=== PATIENT | female | born 1955 | race Caucasian/White ===

== ENCOUNTER 2021-02-26 12:12 | Emergency (ER) | payer OTHER, SELFPAY ==
[2021-02-26 12:14] VITALS: BP 120/62; PULSE 88; RESP 18; TEMP 37.3; O2SAT 94; BMI 33.8
--- NOTE | 2021-02-26 12:17 | W.ED.SEIZURE ---
HPI - Seizure General: Chief Complaint: Seizure Stated Complaint: SEIZURE Time Seen by Provider: 02/26/21 12:16 History of Present Illness: HPI Narrative: 66-year-old female presents emergency room after having a syncopal-like episode. She states that she got a second Covid vaccination but it was on maternal vaccination. She is was generally not feeling well and had a low-grade fever felt weak myalgias etc. Patient collapsed there was no tonic-clonic reactions. No postictal phase no myalgias no loss of bowel or bladder control. MD complaint: possible seizure and syncope Onset (ago): minute(s) Description of Episode: loss of consciousness Trauma: No Seizure History: No Place: Home Possible Precipitating Event: fever and other (Myalgias flulike symptoms secondary to during the vaccination) Associated symptoms: Reports fever(s), anorexia, malaise, syncope and weakness; Deny chest pain, chills, confusion, cough, diaphoresis, rash or short of breath Treatments prior to arrival: none Review of Systems Const: Reports: fever(s) and malaise; Denies: chills or diaphoresis ENMT: Denies: throat pain, ear or mastoid pain, nasal discharge or nasal congestion Card: Reports: syncope; Denies: chest pain Resp: Denies: dyspnea, productive cough or non-productive cough GI: Denies: abdominal pain, nausea, vomiting, hematemesis, coffee ground emesis, diarrhea, constipation, bloating, hematochezia or melena : Denies: flank pain, difficulty voiding, dysuria, urinary frequency or urinary urgency Skin/Breast: Denies: rash or pruritus Neuro: Denies: confusion Physical Exam Const: COMMON NORMALS: no acute distress GENERAL APPEARANCE: cooperative and comfortable ORIENTATION/CONSCIOUSNESS: Yes awake, Yes oriented to person, Yes oriented to place and Yes oriented to time HENMT: COMMON NORMALS: normocephalic, atraumatic, hearing grossly normal bilaterally, external ears normal, EAC's normal, TM's normal bilaterally, Normal nasal mucous membranes and turbinates present, moist oral mucous membranes and oropharynx normal HEAD & SCALP: normocephalic and atraumatic NOSE: Normal nasal mucous membranes and turbinates present EXTERNAL EAR: Yes external ears normal EXTERNAL AUDITORY CANAL: EAC's normal TYMPANIC MEMBRANE: TM's normal bilaterally Eye: COMMON NORMALS: Equal, round and reactive pupils present, EOMs intact bilaterally, conjunctivae normal and no scleral icterus CONJUNCTIVA: Yes conjunctivae normal PUPIL: Yes Equal, round and reactive pupils present Neck/C-Spine: COMMON NORMALS: full ROM, no lymphadenopathy, supple and no JVD Resp: COMMON NORMALS: normal respiratory effort, No retractions, No use of accessory muscles and clear to auscultation bilaterally AUSCULTATION: clear to auscultation bilaterally Cardio: COMMON NORMALS: no JVD, regular rate, regular rhythm and No murmurs present (Cardio) RATE: regular rate RHYTHM: regular rhythm GI: COMMON NORMALS: Soft to palpation and No hepatosplenomegaly present AUSCULTATION: Yes normoactive bowel sounds PALPATION: Yes Soft to palpation, No Tenderness to palpation present (GI), No Guarding due to palpation present (GI) and Yes No hepatosplenomegaly present Extremity: COMMON NORMALS: normal to inspection, capillary refill normal, no clubbing, cyanosis or edema, no calf tenderness and no pedal edema Neuro: SENSORIUM/ORIENTATION: Yes oriented to person, Yes oriented to place and Yes oriented to time Skin: COMMON NORMALS: no rashes or lesions noted GENERAL SKIN EXAM: no rashes or lesions noted Course Vital Signs: Vital signs: Vital Signs Temperature 99.2 F 02/26/21 12:14 Pulse Rate 82 02/26/21 16:09 Respiratory Rate 16 02/26/21 16:09 Blood Pressure 137/72 02/26/21 16:09 Pulse Oximetry 94 02/26/21 16:09 MDM - Seizure MDM Narrative: Medical decision making narrative: Labs reviewed sounds like she had more of a vasovagal episode syncopal episode probably related to the symptoms she was having but I do not believe she actually had a seizure. Go ahead and discharge her home if she has recurring symptoms can return. Lab Data: Attestation: I reviewed the patient's lab results. Labs: Lab Results 02/26/21 02/26/21 02/26/21 Range/Units 13:04 13:04 13:53 WBC 7.2 (4.0-10.0) 10^3/ uL RBC 4.37 (4.1-5.3) 10^6/u L Hgb 11.5 (11.5-15.3) g/dL Hct 36.9 L (37.0-47.0) % MCV 84.4 (81-99) fL MCH 26.3 L (28.0-34.0) pg MCHC 31.2 (30.0-36.0) g/dL RDW 14.8 (12.1-15.1) % Plt Count 242 (130-400) 10^3/c mm MPV 9.8 (7.4-10.4) fL Neut % (Auto) 79.3 % Lymph % (Auto) 10.8 % [place] % (Auto) 8.8 % Eos % (Auto) 0.1 % Baso % (Auto) 0.6 % Neut # (Auto) 5.68 (1.8-7.7) 10^3/u L Lymph # (Auto) 0.8 (0.8-4.8) 10^3/u L [place] # (Auto) 0.6 (0.2-0.9) 10^3/u L Eos # (Auto) 0.0 (0.0-0.8) 10^3/u L Baso # (Auto) 0.0 (0.0-0.1) 10^3/u L Nucleated RBC % (a uto) 0 % Nucleated RBCs # 0.0 /100WBC Sodium 137 (136-145) mmol/L Potassium 4.4 (3.5-5.1) mmol/L Chloride 99 (98-107) mmol/L Carbon Dioxide 29 (22-29) mmol/L Anion Gap 13.4 (5-19) BUN 15 (8-23) mg/dL Creatinine 0.6 (0.5-0.9) mg/dL GFR Calculation 100.6 (90-130) mL/min Glucose 121 H (65-115) mg/dL Calculated Osmolal ity 286 (285-295) mOsm/k g Calcium 8.8 (8.5-10.5) mg/dL Magnesium 1.7 (1.7-2.3) mg/dL Total Bilirubin 0.4 (0.15-1.2) mg/dL AST 16 (0-32) U/L ALT 10 (0-33) U/L Alkaline Phosphata se 75 (35-105) IU/L Creatine Kinase 40 (26-192) U/L Total Protein 6.9 (6.6-8.7) g/dL Albumin 4.1 (3.5-5.2) g/dL Globulin 2.8 (1.3-4.6) g/dL Urine Color Yellow (Yellow) Urine Appearance Clear (CLEAR) Urine pH 5 (5-7) Ur Specific Gravit y 1.015 (1.005-1.030) Urine Protein Neg (Negative) Urine Glucose (UA) 4+ H (Normal) Urine Ketones 1+ H (Negative) Urine Blood Trace H (Negative) Urine Nitrate Negative (Negative) Urine Bilirubin Neg (Negative) Urine Urobilinogen Norm (Negative) mg/dL Ur Leukocyte Elizabeth ase Negative (Negative) Urine RBC 0-4 H (0-2) /hpf Urine WBC None (0-5) /hpf Ur Squamous Epith Cells 0-4 H (0-5) /hpf Amorphous Sediment Not Reportable Urine Bacteria 1+ H (NONE) /hpf Discharge Plan Discharge Patient Disposition: Home Clinical Impression: Syncope, vasovagal Condition: Stable Prescriptions: No Action atorvastatin 40 mg tablet 40 mg PO DAILY@2099 RF: 0 metformin 500 mg tablet 1,000 mg PO BID@ RF: 0 tizanidine 2 mg tablet 2 mg PO Q8H PRN (Reason: Pain) RF: 0 citalopram 40 mg tablet 40 mg PO DAILY@ RF: 0 lisinopril-hydrochlorothiazide 20-12.5 mg tablet 1 tab PO DAILY@ RF: 0 levothyroxine 25 mcg tablet 25 mcg PO DAILY@ RF: 0 Advil 200 mg Tablet 200 mg PO BEDTIME PRN (Reason: Pain) RF: 0 gabapentin 300 mg capsule 300 mg PO BEDTIME@2099 RF: 0 Jardiance 25 mg tablet 25 mg PO DAILY@ RF: 0 Discharge Orders: Discharge ED (Routine); Ordered 02/26/21 Ordered By: Oren Giles Referrals: Reanna Reno, [employer] [Primary Care Provider] - Discharge Diet: Usual diet Discharge Activity: Resume usual activity Patient Instructions: Opioid Safety Coding Level of Care Code ED Applique Cutter for Lidia Sanders
--- NOTE | 2021-02-26 12:23 | XR_ITS ---
WS: [id number] PORTABLE CHEST HISTORY: dyspnea/cough COMPARISON: None available. Lungs are clear and well expanded. No pleural effusion or pneumothorax. Cardiac size: Normal. Mediastinum/Aorta: Normal mediastinum. No osseous abnormality seen. XR/XR chest 1V portable [id number] IMPRESSION: Unremarkable portable chest.
--- NOTE | 2021-02-26 12:23 | ECG_ITS ---
[facility] Test Date: 2021-02-26 Pat Name: Maira Sands Department: Room: Gender: Female Washer Off: : 1955 Requested By: Oren Fatima Order Number: [id number] Reading MD: SHANIQUA RICO Measurements Intervals [place] Rate: 85 P: 4 CO: 148 QRS: 1 QRSD: 85 T: 2 QT: 366 QTc: 436 Interpretive Statements SINUS RHYTHM LOW QRS VOLTAGE IN PRECORDIAL LEADS [QRS DEFLECTION < 1.0 mV IN CHEST LEADS] POSSIBLE ANTERIOR MYOCARDIAL INFARCTION , OF INDETERMINATE AGE [30 ms Q WAVE IN V3/V4, OR R < 0.2 mV IN V4] POSSIBLE INFERIOR MYOCARDIAL INFARCTION , OF INDETERMINATE AGE [30 ms Q WAVE IN II/aVF] No previous ECG available for comparison Electronically Signed On 02-26-2021 20:41:56 CDT by SHANIQUA RICO [id number] f
[2021-02-26 12:27] VITALS: BP 120/62; PULSE 91; RESP 16; O2SAT 95
[2021-02-26 13:09] LABS: Basophils % 0.6 %; Eosinophils % 0.1 %; Hematocrit 36.9 % (37.0-47.0); Hemoglobin 11.5 g/dL (11.5-15.3); Lymphocytes # 0.8 10^3/uL (0.8-4.8); Lymphocytes % 10.8 %; Mean Corpuscular HGB Conc 31.2 g/dL (30.0-36.0); Mean Corpuscular Hemoglobin 26.3 pg (28.0-34.0); Mean Corpuscular Volume 84.4 fL (81-99); Mean Platelet Volume 9.8 fL (7.4-10.4); Monocytes # 0.6 10^3/uL (0.2-0.9); Monocytes % 8.8 %; Neutrophils # 5.68 10^3/uL (1.8-7.7); Neutrophils % 79.3 %; Nucleated Red Blood Cells % 0 %; Platelet Count 242 10^3/cmm (130-400); Red Blood Count 4.37 10^6/uL (4.1-5.3); Red Cell Distribution Width 14.8 % (12.1-15.1); White Blood Count 7.2 10^3/uL (4.0-10.0)
[2021-02-26 13:27] VITALS: BP 179/105; PULSE 79; RESP 16; O2SAT 95
[2021-02-26 13:33] LABS: Alanine Aminotransferase 10 U/L (0-33); Albumin Level 4.1 g/dL (3.5-5.2); Alkaline Phosphatase 75 IU/L (35-105); Anion Gap 13.4 (5-19); Aspartate Amino Transferase 16 U/L (0-32); Blood Urea Nitrogen 15 mg/dL (8-23); Calcium 8.8 mg/dL (8.5-10.5); Carbon Dioxide 29 mmol/L (22-29); Chloride 99 mmol/L (98-107); Creatine Phosphokinase 40 U/L (26-192); Globulin 2.8 g/dL (1.3-4.6); Glomerular Filtration Rate 100.6 mL/min (90-130); Glucose 121 mg/dL (65-115); Magnesium 1.7 mg/dL (1.7-2.3); Osmolality Calculated 286 mOsm/kg (285-295); Potassium 4.4 mmol/L (3.5-5.1); Sodium 137 mmol/L (136-145); Total Bilirubin 0.4 mg/dL (0.15-1.2); Total Protein 6.9 g/dL (6.6-8.7)
[2021-02-26] MEDS: sodium chloride 0.9% 1,000 ML 999 ML IV (14:05)
[2021-02-26 14:19] LABS: Add Urine Microscopic? YES; Bilirubin Urine Neg (Negative); Blood Urine Trace (Negative); Glucose Urine UA 4+ (Normal); Ketones Urine 1+ (Negative); Leukocyte Esterase Urine Negative (Negative); Nitrate Urine Negative (Negative); Protein Urine Neg (Negative); Specific Gravity, Urine 1.015 (1.005-1.030); Urine Appearance Clear (CLEAR); Urine Color Yellow (Yellow); Urobilinogen Urine Norm (Negative); pH Urine 5 (5-7)
[2021-02-26 14:42] VITALS: BP 132/80; PULSE 84; RESP 16; O2SAT 90
[2021-02-26 15:07] LABS: RBC Urine 0-4 /hpf (0-2); Squamous Epithelial Cell Urine 0-4 /hpf (0-5)
[2021-02-26 15:09] LABS: Add Urine Culture? No; Bacteria Urine 1+ /hpf
[2021-02-26 15:30] VITALS: BP 137/72; PULSE 83; RESP 16; O2SAT 94
[2021-02-26 16:09] VITALS: BP 137/72; PULSE 82; RESP 16; O2SAT 94
== END 2021-02-26 16:09 | disposition home or self-care (01) ==
PROVIDERS: Emergency Provider Family Medicine; PCP Nurse Practitioner Family
DX: R55 Syncope and collapse (principal)
CPT/HCPCS: 51701; 71045; 80053; 81001; 82550; 83735; 85025; 93005; 96360; 99284; J7030

== ENCOUNTER 2021-10-12 10:38 | Outpatient (CLI) | payer OTHER, SELFPAY ==
--- NOTE | 2021-10-12 11:00 | MR_ITS ---
WS: [id number] MRI LUMBAR SPINE NONCONTRAST HISTORY: RADICULOPATHY, RIGHT leg numbness for 3 years. COMPARISON: None available. TECHNIQUE: Sagittal and axial multisequence imaging is submitted. Sagittal syringe through the thoracic cord reveals increased T2 signal in the central cervical cord a t the C5-6 level extending over a length of 10 mm. Very slight straightening of the posterior lumbar vertebral bodies. Retrolisthesis of L5 by 5 mm. Moderate degenerative disc disease and narrowing at L5-S1. No marrow edema or fracture. Conus terminates normally at L1-2 disc level. L1-L2: Normal. L2-L3: Mild ligamentum flavum hypertrophy. No stenosis. L3-L4: Mild ligamentum flavum and facet arthritis. Small amount of fluid in the facet joints. No sten osis. L4-L5: Very mild annular disc bulging with moderate ligamentum flavum hypertrophy and facet arthritis encroaching into the thecal sac. There is disc contacting the traversing L5 nerve roots in the later al recesses. Mild encroachment into the thecal sac by ligamentum flavum hypertrophy. L5-S1: Diffuse annular disc bulging and osteophytic ridging. Moderate ligamentum flavum and facet garrett nt arthritis encroaching into the thecal sac and subarticular recesses. There is mild contact on the S1 nerve roots bilaterally and mild narrowing of the central canal. Disc protrusion extending into th e RIGHT foramen. Very slight contact on the undersurface of the exiting RIGHT L5 nerve root. Tiny cortical cyst RIGHT kidney. MR/MR lumbar spine wo con* [id number] IMPRESSION: 1. Mild central and bilateral subarticular recess stenosis at L4-5 with mild c ontact on the L5 nerve roots. 2. Mild central stenosis at L5-S1 with moderate bilateral subarticular recess and RIGHT foraminal stenosis. Suspect small disc protrusion in the RIGHT forame n with minimal contact also on the exiting L5 nerve root. Mild LEFT foraminal s tenosis at L5-S1. 3. 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 Recommend follow-up cervical sp ine MRI with and without contrast.
== END 2021-10-12 10:39 | disposition home or self-care (01) ==
PROVIDERS: PCP Nurse Practitioner Family; Visit Provider Nurse Practitioner Family
DX: M54.16 Radiculopathy, lumbar region (principal); R20.0 Anesthesia of skin; M48.061 Spinal stenosis, lumbar region without neurogenic claudication; M48.07 Spinal stenosis, lumbosacral region
CPT/HCPCS: 72148

== ENCOUNTER → 2021-10-22 10:34 | Outpatient (BNVA) | payer OTHER, SELFPAY | PROVIDERS: PCP Nurse Practitioner Family; Referring Provider Nurse Practitioner Family; Visit Provider Physician Assistant | DX: M54.50 Low back pain, unspecified (principal); M51.36 Other intervertebral disc degeneration, lumbar region; M48.061 Spinal stenosis, lumbar region without neurogenic claudication; M79.604 Pain in right leg | CPT/HCPCS: 72110 ==

== ENCOUNTER 2022-06-14 07:31 | Outpatient (CLI) | payer MEDICARE, SELFPAY ==
--- NOTE | 2022-06-14 07:48 | MM_ITS ---
WS: [id number] BILATERAL SCREENING DIGITAL BREAST TOMOSYNTHESIS MAMMOGRAM WITH CAD HISTORY: SCREENING COMPARISON: 11/02/2017 Bilateral CC and MLO views with tomosynthesis and synthetic mammography submitted. Computer aided det ection analyzed. Breast composition: There are scattered areas of fibroglandular density. No suspicious masses, microc alcifications or architectural distortion. Benign calcification RIGHT breast. No mass. MM/[place] [id number] IMPRESSION: BI-RADS: 2-Benign FOLLOW UP: 1 Year Follow-up
== END 2022-06-14 07:32 | disposition home or self-care (01) ==
PROVIDERS: PCP Nurse Practitioner Family; Visit Provider Nurse Practitioner Family
DX: Z12.31 Encounter for screening mammogram for malignant neoplasm of breast (principal)
CPT/HCPCS: 77063; 77067

== ENCOUNTER → 2022-09-14 11:10 | Outpatient (BNVA) | payer MEDICARE, SELFPAY | PROVIDERS: PCP Nurse Practitioner Family; Visit Provider Internal Medicine Cardiovascular Disease | DX: I10 Essential (primary) hypertension (principal); E78.5 Hyperlipidemia, unspecified; E11.9 Type 2 diabetes mellitus without complications; Z79.84 Long term (current) use of oral hypoglycemic drugs | CPT/HCPCS: 99213 ==

== ENCOUNTER → 2023-10-04 10:26 | Outpatient (BNVA) | payer MEDICARE, SELFPAY | PROVIDERS: PCP Nurse Practitioner Family; Visit Provider Internal Medicine Cardiovascular Disease | DX: I10 Essential (primary) hypertension (principal); E78.5 Hyperlipidemia, unspecified; K21.9 Gastro-esophageal reflux disease without esophagitis; E11.40 Type 2 diabetes mellitus with diabetic neuropathy, unspecified; Z79.84 Long term (current) use of oral hypoglycemic drugs | CPT/HCPCS: 99214 ==

== ENCOUNTER → 2024-11-21 15:43 | Outpatient (BNVA) | payer MEDICARE, SELFPAY | PROVIDERS: PCP Nurse Practitioner Family; Visit Provider Internal Medicine Cardiovascular Disease | DX: I10 Essential (primary) hypertension (principal); R00.1 Bradycardia, unspecified; I44.1 Atrioventricular block, second degree; E11.40 Type 2 diabetes mellitus with diabetic neuropathy, unspecified; G47.33 Obstructive sleep apnea (adult) (pediatric); Z99.89 Dependence on other enabling machines and devices; Z79.84 Long term (current) use of oral hypoglycemic drugs | CPT/HCPCS: 99214 ==

== ENCOUNTER 2024-12-19 13:56 | Outpatient (CLI) | payer MEDICARE, SELFPAY ==
--- NOTE | 2024-12-19 14:00 | MM_ITS ---
WS: [id number] BILATERAL 3D TOMOSYNTHESIS DIGITAL SCREENING MAMMOGRAPHY WITH CAD CLINICAL INFORMATION: SCREENING HISTORY: Screening mammogram. No current complaints. COMPARISON: 2021 TECHNIQUE: Bilateral CC and MLO views. FINDINGS: Scattered fibroglandular densities bilaterally. No suspicious focal mass, asymmetry, calcifications, or architectural distortion. No evidence of malignancy. Stable inverted nipples. MM/MM scr tomosynthesis [id number] IMPRESSION: DENSITY: There are scattered areas of fibroglandular density. BI-RADS: 2 - Benign. FOLLOW UP: 1 Year Follow-up Recommend return to annual screening mammography.
== END 2024-12-19 13:57 | disposition home or self-care (01) ==
LOC: MOBLMAM 13:58
PROVIDERS: PCP Nurse Practitioner Family; Visit Provider Nurse Practitioner Family
DX: Z12.31 Encounter for screening mammogram for malignant neoplasm of breast (principal); R92.323 Mammographic fibroglandular density, bilateral breasts
CPT/HCPCS: 77063; 77067